=== PATIENT | female | born 1945 | race African-American/Black ===

== ENCOUNTER 2022-08-29 09:16 | Emergency (ER) | payer MEDICARE ==
[~2022-08-29] VITALS: Ht 167.6 cm; Wt 58.0 kg
[2022-08-29 09:19] VITALS: BP_DIAS 86
[2022-08-29] MEDS ORDERED: SODIUM CHLORIDE 0.9% 1,000 ML IV ONE (09:30)
[2022-08-29 09:45] VITALS: BP_SYST 146
[2022-08-29 11:22] LABS: BASOPHILS % 1.1 % (0.0-2.0); EOSINOPHILS % 2.4 % (0.0-5.0); HEMATOCRIT. 37.5 % (36.0-48.0); HEMOGLOBIN. 12.5 g/dL (12.0-16.0); LYMPHOCYTES % 33.2 % (20.0-50.0); MEAN CORPUSCULAR HEMOGLOBIN 29.3 pg (28.0-32.0); MEAN CORPUSCULAR VOLUME 87.8 fL (81.0-99.0); MEAN PLATELET VOLUME 6.9 fl (7.4-10.4); MONOCYTES % 8.5 % (2.0-8.0); NEUTROPHILS % 54.8 % (40.0-76.0); PLATELET 374 x1000/uL (130-400); RED BLOOD CELL COUNT 4.28 mill/uL (4.2-5.4); RED CELL DISTRIBUTION WIDTH 12.8 % (11.6-14.6)
[2022-08-29 12:38] LABS: CHLORIDE 104 mEq/L (98-107)
[2022-08-29] MEDS ORDERED: ONDANSETRON HCL 4MG/2ML INJ IV PRN (14:15)
[2022-08-29] MEDS ORDERED: ACETAMINOPHEN 325MG TABLET PO PRN (14:15)
== END 2022-08-29 12:00 | disposition left against medical advice (07) ==
LOC: ER 09:16 → CANBEDREQ 18:06
DX: E86.0 Dehydration (principal)
CPT/HCPCS: 36415; 70450; 71045; 80053; 83880; 84484; 85025; 93005; 96360; 96361; 99285; C1893; J7030